=== PATIENT | female | born 1965 | race African-American/Black ===

== ENCOUNTER 2016-10-31 17:36 | Emergency (ER) | payer OTHER ==
[~2016-10-31] VITALS: Ht 167.6 cm; Wt 125.0 kg
[2016-10-31] MEDS ORDERED: KETOROLAC 60MG/2ML VIAL IM ONE (20:00)
[2016-10-31] MEDS ORDERED: MORPHINE SULFATE 10 MG/ML CPJ IM ONE (20:00)
[2016-10-31 21:50] LABS: CLARITY URINE CLEAR (CLEAR); COLOR URINE YELLOW (YELLOW); GLUCOSE URINE NEGATIVE (NEGATIVE); KETONES URINE TRACE (NEGATIVE); LEUKOCYTE ESTERASE URINE TRACE (NEGATIVE); NITRITE URINE NEGATIVE (NEGATIVE); OCCULT BLOOD URINE NEGATIVE (NEGATIVE); PROTEIN URINE NEGATIVE (NEGATIVE)
[2016-10-31 22:10] LABS: EOSINOPHILS % 0.1 % (0.0-5.0); HEMATOCRIT. 35.6 % (36.0-48.0); HEMOGLOBIN. 11.7 g/dL (12.0-16.0); LYMPHOCYTES % 8.2 % (20.0-50.0); MEAN CORPUSCULAR HEMOGLOBIN 28.4 pg (28.0-32.0); MEAN CORPUSCULAR VOLUME 86.3 fL (81.0-99.0); MEAN PLATELET VOLUME 7.9 fl (7.4-10.4); MONOCYTES % 3.8 % (2.0-8.0); NEUTROPHILS % 87.9 % (40.0-76.0); PLATELET 271 x1000/uL (130-400); RED BLOOD CELL COUNT 4.13 mill/uL (4.2-5.4); RED CELL DISTRIBUTION WIDTH 15.3 % (11.6-14.6); WHITE BLOOD COUNT 6.5 x1000/uL (4.5-11.0)
[2016-10-31 22:12] LABS: CHLORIDE 103 mEq/L (98-107); INDEX HEMOLYSI 1 (1-3); INDEX ICTERIC 1 (1-4); INDEX LIPEMIC 1 (1-3)
[2016-10-31 22:16] LABS: HCG SCREEN NEGATIVE
[2016-10-31 22:17] LABS: ANION GAP 13; CALCIUM 9.1 mg/dL (8.5-10.1); CARBON DIOXIDE 26 mEq/L (21-32); UREA NITROGEN BLOOD 17 mg/dL (7-21); eGFR > 60 mL/min (>60)
[2016-10-31 22:27] LABS: PARTIAL THROMBOPLASTIN TIME 25.6 sec (24.0-34.0)
[2016-10-31 22:43] LABS: INR 1.1; PROTHROMBIN TIME 11.2 sec
[2016-10-31 22:53] LABS: WBC URINE 0-2 /hpf (0-2)
[2016-10-31 22:54] LABS: BACTERIA URINE 1+; RBC URINE 0-2 /hpf (0-2); SQUAMOUS EPITHELIAL CELL URINE FEW /lpf (RARE/1+)
[2016-11-01 00:44] VITALS: BP 160/80
== END 2016-11-01 01:00 | disposition short-term general hospital (02) ==
LOC: ER 18:00
DX: S72.002A Fracture of unspecified part of neck of left femur, initial encounter for closed fracture (principal); M25.552 Pain in left hip; M54.5 Low back pain; J45.909 Unspecified asthma, uncomplicated; M54.32 Sciatica, left side; Z88.1 Allergy status to other antibiotic agents; X58.XXXA Exposure to other specified factors, initial encounter; Y93.89 Activity, other specified; Y92.89 Other specified places as the place of occurrence of the external cause; Y99.8 Other external cause status
CPT/HCPCS: 36415; 72100; 73502; 80048; 81001; 84703; 85025; 85610; 85730; 93005; 96372; 99285; J1885; J2270; Z7610